=== PATIENT | male | born 1965 | race Hispanic/Latino ===

== ENCOUNTER 2024-01-03 18:00 | Inpatient (IN) | payer MEDICARE ==
[2024-01-03] VITALS (11 sets, daily range): BP systolic 107–141; BP diastolic 65–89; PULSE 77–90; RESP 13–20; TEMP 98.4; O2SAT 96
[~2024-01-03] VITALS: Ht 172.7 cm; Wt 86.6 kg
[2024-01-03] MEDS ORDERED: LIDOCAINE HCL 400MG/20ML VIAL ONE (18:48)
[2024-01-03] MEDS ORDERED: IOHEXOL 350 MG/ML 100ML INFUS..BTL IV ONE (18:48)
[2024-01-03] MEDS ORDERED: NITROGLYCERIN 50MG VIAL ONE (18:49)
[2024-01-03] MEDS ORDERED: HEParin 10,000 UNIT/10ML (1,000 UNIT/ML) VIAL ONE (18:49)
[2024-01-03] MEDS ORDERED: IOHEXOL-350 50ML VIAL IV ONE (18:49)
[2024-01-03] MEDS ORDERED: HEParin-NS 1,000 UNIT/500 ML 1,000 ML IV ONE (18:49)
[2024-01-03] MEDS ORDERED: ATROPINE 1MG SYG IVP ONE (18:50)
[2024-01-03] MEDS ORDERED: DOPamine HCL 400 MG/D5%-WATER 0 ML IV ONE (18:51)
[2024-01-03] MEDS ORDERED: FENTanyl CITRate PF 50 MCG/1 ML 2ML VIAL ONE (19:23)
[2024-01-03] MEDS ORDERED: MIDAZOLAM HCL 1 MG/ML 2ML VIAL ONE (19:23)
[2024-01-03] MEDS ORDERED: EPTIFIBATIDE 2 MG/ML 10 ML VIAL IVP ONE (19:29)
[2024-01-03] MEDS ORDERED: EPTIFIBATIDE 75MG/100ML BOTTLE 100 ML IV ONE (19:29)
[2024-01-03] MEDS ORDERED: TICAGrelor 90 MG TABLET ONE (20:17)
[2024-01-04] VITALS (35 sets, daily range): BP systolic 96–139; BP diastolic 52–88; PULSE 70–98; RESP 10–31; TEMP 97.9–99.1; O2SAT 96
[2024-01-04] MEDS ORDERED: ITRA100C3 PO (02:14)
[2024-01-04] MEDS ORDERED: IPRA6S NASAL (02:14)
[2024-01-04] MEDS ORDERED: DARU1TAB3 PO (02:14)
[2024-01-04] MEDS: 0.9%NACL 1000ML 1,000 ML IV SCH (02:52)
[2024-01-04] MEDS: EPTIFIBATIDE 75MG/100ML BOTTLE 100 ML IV SCH (03:01)
[2024-01-04 05:20] LABS: BASOPHILS # (AUTO) 0.03 K/uL (0.00-0.20); BASOPHILS % (AUTO) 0.5 % (0.0-5.0); EOSINOPHILS # (AUTO) 0.04 K/uL (0.00-0.70); EOSINOPHILS % (AUTO) 0.7 % (0.0-8.0); HEMATOCRIT 44.9 % (42-54); IMMATURE GRANULOCYTE ABSOLUTE 0.03 K/uL (0-1); LYMPHOCYTES # (AUTO) 0.6 K/uL (1.0-4.8); LYMPHOCYTES % (AUTO) 11.2 % (21.0-51.0); MEAN CORPUSCULAR HEMOGLOBIN 29.7 pg (27.0-33.0); MEAN CORPUSCULAR HGB CONC 34.3 g/dL (32.0-36.0); MEAN CORPUSCULAR VOLUME 86.7 fL (79-99); MONOCYTES # (AUTO) 0.5 K/uL (0.1-1.0); MONOCYTES % (AUTO) 8.2 % (3.0-13.0); NEUTROPHILS # (AUTO) 4.5 K/uL (1.8-7.7); NEUTROPHILS % (AUTO) 78.9 % (40.0-77.0); PLATELET COUNT (AUTO) 154 K/uL (130-400); RED BLOOD CELL COUNT(AUTO) 5.18 MIL/uL (4.50-6.20); RED CELL DISTRIBUTION WIDTH 13.7 % (11.0-15.5); WHITE BLOOD COUNT (AUTO) 5.7 K/uL (4.8-10.8)
[2024-01-04 05:36] LABS: ALBUMIN 3.1 g/dL (3.5-5.0); BILIRUBIN,TOTAL 1.1 mg/dL (0.2-1.0); CREATININE 0.8 mg/dL (0.5-1.3); MAGNESIUM 2.1 mg/dL (1.80-2.40); POTASSIUM 4.5 mmol/L (3.5-5.1); TOTAL PROTEIN, SERUM 6.6 g/dL (6.0-8.3)
[2024-01-04 05:52] LABS: B-TYPE NATRIURETIC PEPTIDE 69 pg/mL (0-100)
[2024-01-04 06:05] LABS: HEMOGLOBIN A1C 5.3 % (4.0-6.0)
[2024-01-04] MEDS: TICAGrelor 90 MG TABLET PO SCH (08:29)
[2024-01-04] MEDS: FAMOTIDINE 20MG VIAL IV SCH (08:29)
[2024-01-04] MEDS: ASPIRIN 81MG CHEW TAB PO SCH (08:29)
[2024-01-04] MEDS: RANOLAZINE 500 MG TAB.SR.12H PO SCH (20:11)
[2024-01-05] VITALS (24 sets, daily range): BP systolic 97–145; BP diastolic 62–99; PULSE 76–102; RESP 13–34; TEMP 97.9–98.5; O2SAT 96–97
[2024-01-05 04:26] LABS: HEMATOCRIT 44.2 % (42-54); MEAN CORPUSCULAR HEMOGLOBIN 30.2 pg (27.0-33.0); MEAN CORPUSCULAR HGB CONC 34.2 g/dL (32.0-36.0); MEAN CORPUSCULAR VOLUME 88.4 fL (79-99); WHITE BLOOD COUNT (AUTO) 5.2 K/uL (4.8-10.8)
[2024-01-05 04:36] LABS: CREATININE 0.9 mg/dL (0.5-1.3); POTASSIUM 3.9 mmol/L (3.5-5.1)
[2024-01-05 04:39] LABS: INR 1.02 (0.85-1.15)
[2024-01-05 04:40] LABS: PARTIAL THROMBOPLASTIN TIME 29.1 SEC (26.3-35.5)
[2024-01-05] MEDS ORDERED: LIDOCAINE HCL 400MG/20ML VIAL ONE (07:13)
[2024-01-05] MEDS ORDERED: IOHEXOL 350 MG/ML 100ML INFUS..BTL IV ONE (07:13)
[2024-01-05] MEDS ORDERED: niCARDIpine 25MG INJ IV ONE (07:13)
[2024-01-05] MEDS ORDERED: HEParin-NS 1,000 UNIT/500 ML 1,000 ML IV ONE (07:13)
[2024-01-05] MEDS ORDERED: HEParin 10,000 UNIT/10ML (1,000 UNIT/ML) VIAL ONE (07:13)
[2024-01-05] MEDS ORDERED: NITROGLYCERIN 50MG VIAL ONE (07:14)
[2024-01-05] MEDS ORDERED: FENTanyl CITRate PF 50 MCG/1 ML 2ML VIAL ONE ×2 (07:16→07:46)
[2024-01-05] MEDS ORDERED: MIDAZOLAM HCL 1 MG/ML 2ML VIAL ONE ×2 (07:16→07:46)
[2024-01-05] MEDS ORDERED: BIVALIRUDIN 250 MG/VIAL IV ONE (07:33)
[2024-01-05] MEDS ORDERED: IOHEXOL-350 75 ML VIAL IV ONE ×2 (08:48→09:16)
[2024-01-05] MEDS ORDERED: HEParin-NS 1,000 UNIT/500 ML 500 ML IV ONE (08:58)
[2024-01-05] MEDS ORDERED: IOHEXOL-350 50ML VIAL IV ONE (09:53)
[2024-01-05] MEDS ORDERED: TICAGrelor 90 MG TABLET ONE (10:05)
[2024-01-05] MEDS: 0.9%NACL 1000ML 1,000 ML IV SCH (10:30)
[2024-01-06 03:22] VITALS: BP 122/66; PULSE 77; RESP 16; TEMP 98
[2024-01-06 03:46] LABS: HEMATOCRIT 44.1 % (42-54); MEAN CORPUSCULAR HEMOGLOBIN 30.1 pg (27.0-33.0); MEAN CORPUSCULAR HGB CONC 34.2 g/dL (32.0-36.0); MEAN CORPUSCULAR VOLUME 87.8 fL (79-99); RED BLOOD CELL COUNT(AUTO) 5.02 MIL/uL (4.50-6.20); RED CELL DISTRIBUTION WIDTH 13.7 % (11.0-15.5); WHITE BLOOD COUNT (AUTO) 5.4 K/uL (4.8-10.8)
[2024-01-06 03:58] LABS: CREATININE 0.9 mg/dL (0.5-1.3); MAGNESIUM 1.9 mg/dL (1.80-2.40); POTASSIUM 3.7 mmol/L (3.5-5.1)
[2024-01-06] MEDS ORDERED: POTASSIUM CHLORIDE 10% ELIXIR 20 MEQ/15 ML UDCUP PO PRN (06:00)
[2024-01-06] MEDS: MAGNESIUM 2GM PREMIX 50ML 50 ML IV PRN (06:24)
[2024-01-06] MEDS: KCL 20 MEQ ERTAB PO PRN (06:24)
[2024-01-06 08:00] VITALS: O2SAT 97
[2024-01-06 08:05] VITALS: BP 131/79; PULSE 83; RESP 18; TEMP 98.5
[2024-01-06 10:26] LABS: BILIRUBIN,DIRECT 0.2 mg/dL (0.0-0.3); BILIRUBIN,TOTAL 1.2 mg/dL (0.2-1.0); TOTAL PROTEIN, SERUM 6.5 g/dL (6.0-8.3)
[2024-01-06] MEDS ORDERED: ROSU20TA73 PO (10:41)
[2024-01-06] MEDS ORDERED: RAMI2.5C57 PO (10:41)
[2024-01-06] MEDS ORDERED: TICA90TA PO (10:41)
[2024-01-06] MEDS ORDERED: AEC81 PO (10:41)
[2024-01-06] MEDS ORDERED: NITR0.4T50 SL (11:05)
[2024-01-06 11:10] VITALS: BP 134/84; PULSE 84; RESP 18; TEMP 97.6
== END 2024-01-06 13:15 | disposition home or self-care (01) | DRG 321 ==
LOC: 2BH 18:00 → 2CV 19:25 → 2BH 20:09 → 2AH 01-05 18:02
PROVIDERS: ADMIT Internal Medicine; ATTEND Internal Medicine
PROC: 027034Z Dilation of Coronary Artery, One Artery with Drug-eluting Intraluminal Device, Percutaneous Approach (ICD-10-PCS; principal; 2024-01-03)
PROC: 5A1223Z Performance of Cardiac Pacing, Continuous (ICD-10-PCS; 2024-01-03)
PROC: B2111ZZ Fluoroscopy of Multiple Coronary Arteries using Low Osmolar Contrast (ICD-10-PCS; 2024-01-03)
PROC: B240ZZ3 Ultrasonography of Single Coronary Artery, Intravascular (ICD-10-PCS; 2024-01-03)
PROC: 3E073PZ Introduction of Platelet Inhibitor into Coronary Artery, Percutaneous Approach (ICD-10-PCS; 2024-01-03)
PROC: 027135Z Dilation of Coronary Artery, Two Arteries with Two Drug-eluting Intraluminal Devices, Percutaneous Approach (ICD-10-PCS; 2024-01-05)
PROC: 4A023N7 Measurement of Cardiac Sampling and Pressure, Left Heart, Percutaneous Approach (ICD-10-PCS; 2024-01-05)
PROC: B2111ZZ Fluoroscopy of Multiple Coronary Arteries using Low Osmolar Contrast (ICD-10-PCS; 2024-01-05)
PROC: 4A023N7 Measurement of Cardiac Sampling and Pressure, Left Heart, Percutaneous Approach (ICD-10-PCS; 2024-01-05)
DX: I21.19 ST elevation (STEMI) myocardial infarction involving other coronary artery of inferior wall (principal); R57.0 Cardiogenic shock; I44.2 Atrioventricular block, complete; I25.10 Atherosclerotic heart disease of native coronary artery without angina pectoris; G47.33 Obstructive sleep apnea (adult) (pediatric); B39.9 Histoplasmosis, unspecified; Z21 Asymptomatic human immunodeficiency virus [HIV] infection status; E66.9 Obesity, unspecified; J84.10 Pulmonary fibrosis, unspecified; H91.92 Unspecified hearing loss, left ear; E78.00 Pure hypercholesterolemia, unspecified; I25.5 Ischemic cardiomyopathy; J44.89 Other specified chronic obstructive pulmonary disease; Z83.3 Family history of diabetes mellitus; Z82.49 Family history of ischemic heart disease and other diseases of the circulatory system; Z82.3 Family history of stroke; Z79.899 Other long term (current) drug therapy; Z68.29 Body mass index [BMI] 29.0-29.9, adult; Z90.49 Acquired absence of other specified parts of digestive tract; Z88.2 Allergy status to sulfonamides
CPT/HCPCS: 36415; 80048; 80053; 80061; 80076; 83036; 83735; 83880; 84484; 85025; 85027; 85347; 85610; 85730; 92978; 93005; 93306; 93356; 93454; 93458; 93571; 99156; 99157; C1760; C1769; C1874; C1887; C1894; C9600; C9601; C9606; G0378; J0461; J0583; J1265; J1327; J1644; J2250; J3010; J3475; J3490; Q9967; A4649; C1713; C1725; C1753; Q9965